=== PATIENT | male | born 1950 | race Caucasian/White ===

== ENCOUNTER 2018-01-30 08:35 | Day surgery (SDC) | payer BC ==
[2018-01-30 09:34] LABS: ADD MAN DIFF? NO
[2018-01-30 09:35] LABS: BASOPHILS % 0.2 % (0.0-2.0); EOSINOPHILS # 0.2 10^3/ul (0.0-0.5); EOSINOPHILS % 1.5 % (0.0-7.0); HEMATOCRIT 39.1 % (42.0-52.0); HEMOGLOBIN 13.3 g/dl (14.0-18.0); LYMPHOCYTES # 1.6 10^3/ul (0.8-2.9); LYMPHOCYTES % 16.3 % (15.0-51.0); MEAN CORPUSCULAR HEMOGLOBIN 32.5 pg (29.0-33.0); MEAN CORPUSCULAR VOLUME 95.6 fl (82.0-101.0); MEAN PLATELET VOLUME 11.6 fl (7.4-10.4); MONOCYTE # 1.4 10^3/ul (0.3-0.9); MONOCYTES % 14.2 % (0.0-11.0); NEUTROPHIL # 6.6 10^3/ul (1.6-7.5); NEUTROPHILS % 67.6 % (39.0-77.0); PLATELET COUNT 124 10^3/UL (140-415); POSITIVE DIFF @See below; RED BLOOD COUNT 4.09 10^6/ul (4.70-6.10); RED CELL DISTRIBUTION WIDTH 12.9 % (11.5-14.5)
[2018-01-30 09:35] LABS: WHITE BLOOD COUNT 9.7 10^3/ul (4.8-10.8)
[2018-01-30 09:53] LABS: PARTIAL THROMBOPLASTIN TIME 28.8 Sec (25.0-35.0); PROTIME 14.4 Sec (11.9-14.9); PT RATIO 1.1
[2018-01-30 09:56] LABS: ANION GAP 13 (8-16); CARBON DIOXIDE 29 mmol/L (21-31); CHLORIDE 106 mmol/L (97-110); GLUCOSE 94 mg/dl (70-220)
[2018-01-30 09:59] LABS: BLOOD UREA NITROGEN 10 mg/dl (7-20); CALCIUM 9.2 mg/dl (8.4-10.2); CREATININE 0.63 mg/dl (0.61-1.24); POTASSIUM 4.7 mmol/L (3.5-5.1); SODIUM 143 mmol/L (135-144)
[2018-01-30] MEDS ORDERED: SOD CHLORIDE 0.9% 1,000 ML IV ×2 (10:00→12:17)
[2018-01-30] MEDS ORDERED: IODIXANOL LOCM 100 ML BTL (11:08)
[2018-01-30] MEDS ORDERED: HEPARIN 1000 UNITS/ML 10 ML INJ (11:08)
[2018-01-30] MEDS ORDERED: LIDOCAINE 1% (MDV) 20 ML INJ (11:08)
[2018-01-30] MEDS ORDERED: VERAPAMIL 5 MG INJ (11:09)
[2018-01-30] MEDS ORDERED: NITROGLYCERIN (IC) 100 MCG/ML INJ (11:09)
[2018-01-30] MEDS ORDERED: FENTAnyl 50 MCG/ML VIAL (11:09)
[2018-01-30] MEDS ORDERED: MIDAZOLAM 1 MG/ML 2 ML INJ (11:09)
[2018-01-30] MEDS ORDERED: SOD CHLORIDE 0.9% 500 ML (12:16)
== END 2018-01-30 16:10 | disposition home or self-care (01) ==
LOC: SDS 08:35
DX: I50.9 Heart failure, unspecified (principal); I42.8 Other cardiomyopathies
CPT/HCPCS: 80048; 85025; 85610; 85730; 93458